=== PATIENT | female | born 1990 | race American Indian/Alaskan Native ===

== ENCOUNTER 2019-11-18 17:41 | Emergency (ER) | payer OTHER, MEDICAID ==
[2019-11-18] MEDS ORDERED: IBUPROFEN 600 MG TAB PO ONE (21:05)
[2019-11-18] MEDS ORDERED: ONDANSETRON 4 MG ODT TAB PO ONE (21:05)
[2019-11-18] MEDS ORDERED: HYDROcodone/ACETAMINOPHEN 7.5-325MG TAB PO ONE (21:05)
[2019-11-18] MEDS ORDERED: ACETAMINOPHEN 325 MG/10.15 ML ORAL LIQD UNIT DOSE PO ONE (21:21)
[2019-11-18] MEDS ORDERED: IBUPROFEN ORAL LIQD 100 MG/5 ML ORAL.LIQD PO ONE (21:21)
[2019-11-18 21:47] LABS: Bacteria,Urine 1+ /HPF (Negative); Bilirubin,Urine NEG (Negative); Blood,Urine MOD (Negative); Color,Urine Yellow (Yellow); Mucus,Urine FEW /HPF; Protein,Urine <15 mg/dL mg/dL (Negative)
[2019-11-18 21:49] LABS: HCG Qualitative,Urine Negative (Negative)
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
[2019-11-18 23:34] VITALS: BP 128/82
== END 2019-11-18 23:32 | disposition home or self-care (01) ==
LOC: ED 17:41
DX: S16.1XXA Strain of muscle, fascia and tendon at neck level, initial encounter (principal); M62.830 Muscle spasm of back; V49.49XA Driver injured in collision with other motor vehicles in traffic accident, initial encounter; Y93.89 Activity, other specified; Y92.488 Other paved roadways as the place of occurrence of the external cause; Y99.8 Other external cause status
CPT/HCPCS: 70450; 72125; 72131; 81001; 81025; 87086; 99284; Q0162

== ENCOUNTER 2020-09-09 10:31 | Emergency (ER) | payer MEDICAID ==
[2020-09-09 11:11] VITALS: BP 160/80
--- NOTE | 2020-09-09 11:30 | Emergency Department Report ---
Blank Doc - Documentation Documentation: 30-year-old female that presents with left facial and trisumus. This initial assessment/diagnostic orders/clinical plan/treatment(s) is/are subject to change based on patient's health status, clinical progression and re- assessment by fellow clinical providers in the ED. Further treatment and workup at subsequent clinical providers discretion. Patient/guardians urged not to elope from the ED as their condition may be serious if not clinically assessed and managed. Initial orders include: 1- Patient sent to [facility] for further evaluation and treatment 2- labs
[2020-09-09 12:06] LABS: Basophils % (Auto) 0.3 % (0.0-1.8); Eosinophils % (Auto) 0.6 % (0.0-4.3); Hematocrit 40.1 % (30.3-42.9); Hemoglobin 13.6 gm/dl (10.1-14.3); Lymphocytes # (Auto) 1.5 K/mm3 (1.2-5.4); Lymphocytes % (Auto) 20.7 % (13.4-35.0); Mean Corpuscular HGB Conc 34 % (30-34); Mean Corpuscular Volume 86 fl (79-97); Monocytes # (Auto) 0.6 K/mm3 (0.0-0.8); Monocytes % (Auto) 7.8 % (0.0-7.3); Platelet Count 250 K/mm3 (140-440); Red Blood Count 4.64 M/mm3 (3.65-5.03); Red Cell Distribution Width 13.7 % (13.2-15.2)
[2020-09-09 12:25] LABS: Alanine Aminotransferase 27 units/L (7-56); Albumin 4.1 g/dL (3.9-5); BUN/Creatinine Ratio 9; Blood Urea Nitrogen 7 mg/dL (7-17); Calcium 9.1 mg/dL (8.4-10.2); Hemolysis Index 5
[2020-09-09] MEDS ORDERED: dexAMETHasone 20 MG/5 ML VIAL IM ONE (13:48)
[2020-09-09] MEDS ORDERED: CLINDAMYCIN 150 MG/ML VIAL 6 ML IM ONE (13:48)
--- NOTE | 2020-09-09 14:09 | Emergency Department Report ---
ED General Adult HPI - General Chief complaint: Dental/Oral Stated complaint: LFT SIDE FACE SWELLING/PAIN Time Seen by Provider: 09/09/20 11:20 Source: patient Mode of arrival: Ambulatory Limitations: No Limitations - History of Present Illness Initial comments: 30-year-old female with no significant past medical history presenting with chief complaint of dental pain and facial swelling, gradual onset 1 week ago. She states that the facial swelling began over the past 5 days and has actually significantly improved but states that she is still having difficulty opening her mouth to eat. Denies any fevers or systemic complaints. She does admit to a prior jaw surgery several years ago and thought that that may have been what was causing this at first until the swelling began. Severity moderate, pain 5 out of 10, no alleviating or exacerbating factors. - Related Data Previous Rx's Medication Instructions Recorded Last Taken Type Acetamin/Codeine 120-12Mg/5 ml 5 ml PO TID PRN #6 oz 08/22/15 Unknown Rx [Tylenol/Codeine] Ibuprofen [Motrin] 800 mg PO Q8HR PRN #24 tablet 11/18/19 Unknown Rx tiZANidine [Zanaflex 4mg TAB] 4 mg PO Q8H PRN #21 tablet 11/18/19 Unknown Rx traMADoL [Ultram] 50 mg PO Q6HR PRN #10 tablet 11/18/19 Unknown Rx Acetaminophen/Codeine [Tylenol 1 tab PO Q6H PRN #12 tab 09/09/20 Unknown Rx /Codeine # 3 tab] Clindamycin [Clindamycin CAP] 450 mg PO Q8HR #90 capsule 09/09/20 Unknown Rx Allergies Allergy/AdvReac Type Severity Reaction Status Date / Time No Known Allergies Allergy Verified 11/18/19 18:01 ED Review of Systems ROS: Stated complaint: LFT SIDE FACE SWELLING/PAIN Other details as noted in HPI Comment: All other systems reviewed and negative ENT: as per HPI ED Past Medical Hx - Past Medical History Previous Medical History?: No Additional medical history: Vaginal delivery 10-01-2013 - Social History Smoking Status: Never Smoker Substance Use Type: Alcohol - Medications Home Medications: Home Medications Medication Instructions Recorded Confirmed Last Taken Type Acetamin/Codeine 120-12Mg/5 ml 5 ml PO TID PRN #6 oz 08/22/15 Unknown Rx [Tylenol/Codeine] Ibuprofen [Motrin] 800 mg PO Q8HR PRN #24 tablet 11/18/19 Unknown Rx tiZANidine [Zanaflex 4mg TAB] 4 mg PO Q8H PRN #21 tablet 11/18/19 Unknown Rx traMADoL [Ultram] 50 mg PO Q6HR PRN #10 tablet 11/18/19 Unknown Rx Acetaminophen/Codeine [Tylenol 1 tab PO Q6H PRN #12 tab 09/09/20 Unknown Rx /Codeine # 3 tab] Clindamycin [Clindamycin CAP] 450 mg PO Q8HR #90 capsule 09/09/20 Unknown Rx ED Physical Exam - General Limitations: No Limitations General appearance: alert, in no apparent distress - Head Head exam: Present: atraumatic, normocephalic - Eye Eye exam: Present: normal appearance - ENT ENT exam: Present: mucous membranes moist, other (There is moderate left-sided facial swelling especially at the jawline, no evidence of Jim angina, suspected abscess to tooth #18 with drainage noted in that area. She is able to open her mouth about 2 finger widths. Oropharynx is normal.) - Neck Neck exam: Present: normal inspection - Respiratory Respiratory exam: Present: normal lung sounds bilaterally. Absent: respiratory distress - Cardiovascular Cardiovascular Exam: Present: regular rate, normal rhythm. Absent: systolic murmur, diastolic murmur, rubs, gallop - GI/Abdominal GI/Abdominal exam: Present: soft, normal bowel sounds - Extremities Exam Extremities exam: Present: normal inspection - Back Exam Back exam: Present: normal inspection - Neurological Exam Neurological exam: Present: alert, oriented X3 - Psychiatric Psychiatric exam: Present: normal affect, normal mood - Skin Skin exam: Present: warm, dry, intact, normal color. Absent: rash ED Course Vital Signs 09/09/20 11:11 Temperature 98.0 F Pulse Rate 67 Respiratory 16 Rate Blood Pressure 160/80 [Right] O2 Sat by Pulse 96 Oximetry ED Medical Decision Making - Lab Data Result diagrams: 09/09/20 11:27 09/09/20 11:27 - Medical Decision Making Patient presenting with suspected dental abscess, she does have some very mild trismus but is able to open her mouth at least 2 finger widths and is able to e at and drink. She does have moderate left-sided facial swelling however she states that is actually gotten much better over the past day or so likely secondary to drainage in the area of the tooth. No evidence of Jim angina. Since symptoms are already starting to improve would recommend treatment with clindamycin, dose of steroids here and close dental follow-up however if any symptoms worsen she is aware that she must return to the ED. - Differential Diagnosis Dental abscess, cellulitis Critical care attestation.: If time is entered above; I have spent that time in minutes in the direct care of this critically ill patient, excluding procedure time. ED Disposition Clinical Impression: Dental abscess Disposition: TO HOME OR SELFCARE Is pt being admited?: No Condition: Stable Instructions: Dental Abscess Prescriptions: Clindamycin [Clindamycin CAP] 450 mg PO Q8HR #90 capsule Acetaminophen/Codeine [Tylenol /Codeine # 3 tab] 1 tab PO Q6H PRN #12 tab PRN Reason: pain Referrals: PRIMARY CARE, [Primary Care Provider] - 3-5 Days Time of Disposition: 14:10
== END 2020-09-09 15:26 | disposition home or self-care (01) ==
LOC: ED 10:31
DX: K04.7 Periapical abscess without sinus (principal); Z98.890 Other specified postprocedural states; Z79.2 Long term (current) use of antibiotics; Z79.899 Other long term (current) drug therapy
CPT/HCPCS: 36415; 80053; 84703; 85025; 96372; 99283; J1100